=== PATIENT | male | born 1980 | race Caucasian/White ===

== ENCOUNTER → 2018-01-04 | Emergency (ER) | payer OTHER ==
[~2018-01-04] VITALS: Ht 180.3 cm; Wt 89.8 kg
[~2018-01-04] MED LIST: KETO10TA2 PO; MEDROLPACK PO; NORFLEX100MG PO; PROTONIX20 MG PO; TRAMADOL HCL50 MG PO; TRIPLE ANTIBIOT15 GM TP
== END | disposition left against medical advice (07) ==
LOC: ER 11:13
DX: Z53.20 Procedure and treatment not carried out because of patient's decision for unspecified reasons (principal)

== ENCOUNTER 2018-07-12 09:53 | Emergency (ER) | payer OTHER ==
[~2018-07-12] VITALS: Ht 180.3 cm; Wt 88.0 kg
[2018-07-12] MEDS ORDERED: SINGULAIR10 MG PO (10:33)
[2018-07-12] MEDS ORDERED: DICLOFENAC POTA50 MG PO (12:12)
[2018-07-12] MEDS ORDERED: SKELAXIN800 MG PO (12:12)
== END 2018-07-12 12:40 ==
LOC: ER 09:53
DX: S39.012A Strain of muscle, fascia and tendon of lower back, initial encounter (principal); M62.830 Muscle spasm of back; X50.9XXA Other and unspecified overexertion or strenuous movements or postures, initial encounter; Y93.89 Activity, other specified; Y92.89 Other specified places as the place of occurrence of the external cause; Y99.8 Other external cause status